=== PATIENT | female | born 1980 | race Caucasian/White ===

== ENCOUNTER 2022-05-27 16:59 | Outpatient (CLI) | payer OTHER | END 2022-05-27 17:00 | disposition home or self-care (01) | LOC: RAD 16:59 | PROVIDERS: ATTEND Family Medicine | DX: M25.471 Effusion, right ankle (principal); M17.11 Unilateral primary osteoarthritis, right knee ==

== ENCOUNTER 2022-07-21 13:18 | Outpatient (CLI) | payer OTHER | END 2022-07-21 13:19 | disposition home or self-care (01) | LOC: BICMAMMO 13:18 | PROVIDERS: ATTEND Family Medicine | DX: Z12.31 Encounter for screening mammogram for malignant neoplasm of breast (principal) | CPT/HCPCS: 77063; 77067 ==